=== PATIENT | male | born 1965 | race Caucasian/White ===

== ENCOUNTER 2020-06-16 08:19 | Outpatient (CLI) | payer BC ==
[2020-06-16] MEDS ORDERED: Gadobenate Dimeglumine 529 MG/1 ML (20ML VIAL) ONE (08:40)
[2020-06-16] MEDS ORDERED: EPINEPHrine 1 MG/ML AMP ONE (08:40)
[2020-06-16] MEDS ORDERED: Lidocaine 1% PF 10 ML AMP ONE (08:40)
[2020-06-16] MEDS ORDERED: Iopamidol 300 61% 50 ML VIAL FS ONE (08:40)
--- NOTE | 2020-06-16 11:53 | MRI ---
EXAM: MR arthrogram right shoulder PROVIDED CLINICAL HISTORY: Pain COMPARISON: None FINDINGS: Contrast material is present within the subacromial subdeltoid bursa. No contrast material is present within the glenohumeral joint. The components of the rotator cuff appear intact. The long head biceps tendon appears intact and norm ally located. There is abnormal signal seen involving the superior labrum on the coronal T2 sequence, compatible wi th SLAP tear. There is extension to involve the posterior to superior labrum. Articular cartilage irregularity is seen involving the central glenoid. Subcortical cyst formation is seen at the anterio r superior aspect of the glenoid. The amount of fluid within the glenohumeral joint is physiologic. There is conspicuous acromioclavicular joint degenerative change with mild periarticular marrow edema . There is associated mass effect upon the subjacent supraspinatus. No focal concerning regional marrow or muscular signal abnormality IMPRESSION: 1. Findings compatible with SLAP tear. 2. Glenohumeral articular chondrosis. 3. Acromioclavicular joint osteoarthrosis with periarticular marrow edema.
--- NOTE | 2020-06-16 12:02 | MRI ---
MRI cervical spine noncontrast: 06/16/2020 HISTORY: 54-year-old male with cervical radiculopathy and cervicalgia FINDINGS: Axial images are significantly degraded by patient motion. Vertebral body heights are maintained. No high-grade bone marrow signal abnormality. C1-2: No high-grade central spinal canal stenosis. C2-3: Minimal disc space narrowing. Severe left facet DJD. Moderate right and mild to moderate left n eural foraminal stenosis. No high-grade central spinal canal stenosis. C3-4: Mild disc space narrowing. Broad-based disc-osteophyte complex protrudes into the spinal canal, asymmetrically later on the left side than right. No high-grade right facet DJD. Bilateral uncinate process osteophytes, small on the right and moderate on the left. Severe left facet DJD. Sev ere right and very severe left neural foraminal stenosis. C4-5: Moderate disc space narrowing. Prominent broad-based disc-osteophyte complex protrudes into the spinal canal. Superimposed central-right paracentral component of disc-osteophyte complex or disc herniation additionally exacerbates the spinal canal stenosis, indenting the spinal cord. Severe cent ral spinal canal stenosis with mild flattening of the cord. Moderate size bilateral uncinate process osteophytes. Severe bilateral neural foraminal stenosis. Mild to moderate bilateral facet DJD . C5-6: Moderate disc space narrowing. Broad-based disc-osteophytic bar complex protrudes into the spin al canal, abutting the spinal cord, slightly indenting it. Severe central spinal canal stenosis with obliteration of CSF signal, but not as severe as C4-5. Moderate to large bilateral uncinate proc ess osteophytes. Severe bilateral neural foraminal stenosis. Mild right facet DJD. No high-grade left facet DJD. C6-7: Mild to moderate disc space narrowing. Superimposed on a broad-based shallow disc herniation, t here is a superimposed small focal central disc herniation indenting the spinal cord. Severe central spinal canal stenosis. Moderate size bilateral uncinate process osteophytes. Severe bilateral neural foraminal stenosis. Normal right facet joint. Moderate left facet DJD. C7-T1: Moderate bilateral facet DJD. Mild disc space narrowing. Mild spinal canal stenosis centrally. Mild bilateral neural foraminal stenosis. IMPRESSION: 1.) Cervical spondylosis with multilevel mild to moderate degenerative disc disease, and multilevel f acet osteoarthrosis, left worse than right. 2) severe central spinal canal stenoses with cortical indentations, and severe bilateral neural gerson inal stenosis, at multiple levels.
--- NOTE | 2020-06-16 12:06 | RAD ---
ARTHROGRAM RIGHT SHOULDER: DATE: 06/16/2020 HISTORY: 54-year-old male with right shoulder pain M 25.511 TECHNIQUE: Signed informed consent obtained. Anterior skin of shoulder prepared and draped in usual sterile fash ion. 25-gauge needle used to apply buffered lidocaine. Under brief, intermittent fluoroscopy, a 22-gauge spinal needle was advanced to the vicinity of the glenohumeral joint. A total of10 mL of nor mal saline solution containing MultiHance gadolinium-based contrast agent, Isovue-300 iodinated contrast agent, lidocaine, and epinephrine, was injected. Needle was removed. Patient tolerated the p rocedure well. No complications. FINDINGS: Contrast injection is into the subacromial-subdeltoid bursa. IMPRESSION: 1.) Injection into the subacromial-subdeltoid bursa. 2.) a SLAP tear is diagnosed on the subsequent MRI. 3) see separate report of subsequent MRI arthrogram of shoulder.
== END 2020-06-16 08:20 | disposition home or self-care (01) ==
LOC: RAD 08:19
PROVIDERS: ATTEND Orthopaedic Surgery
DX: M25.511 Pain in right shoulder (principal); M47.22 Other spondylosis with radiculopathy, cervical region; M50.121 Cervical disc disorder at C4-C5 level with radiculopathy; S43.431A Superior glenoid labrum lesion of right shoulder, initial encounter; M47.813 Spondylosis without myelopathy or radiculopathy, cervicothoracic region; M48.02 Spinal stenosis, cervical region; M48.03 Spinal stenosis, cervicothoracic region; R60.0 Localized edema; M19.011 Primary osteoarthritis, right shoulder; M94.211 Chondromalacia, right shoulder
CPT/HCPCS: 23350; 72141; A9577; J0171; J2001; Q9967